=== PATIENT | male | born 1970 | race Two or more races ===

== ENCOUNTER 2024-11-06 22:14 | Inpatient (IN) | payer MEDICARE, OTHER ==
[~2024-11-06] VITALS: Ht 190.5 cm; Wt 150.4 kg
[2024-11-06] MEDS ORDERED: VANCOMYCIN 1 GM /D5W 250 ML PB IV ONE (23:03)
[2024-11-06] MEDS: VANCOMYCIN 1 GM in IV D5W 250 ML IV ONE (23:05)
[2024-11-06 23:11] LABS: PLATELET COUNT (AUTO) 406 K/uL (150-450); RED BLOOD CELL COUNT(AUTO) 4.94 MIL/uL (4.5-6.0); RED CELL DISTRIBUTION WIDTH 16.6 % (11.5-15.0); WHITE BLOOD COUNT (AUTO) 13.5 K/uL (4.3-11.0)
[2024-11-06 23:30] LABS: INR 1.02 (0.91-1.10)
[2024-11-06 23:32] LABS: CALCIUM, SERUM 9.3 mg/dL (8.5-10.1); CREATININE 1.1 mg/dL (0.6-1.3); SODIUM SERUM 130.0 mmol/L (136-145); UREA NITROGEN, BLOOD 8.0 mg/dL (7-18)
[2024-11-06 23:42] LABS: LACTIC ACID 1.8 mmol/L (0.4-2.0)
[2024-11-07] MEDS ORDERED: Z GUARD REMEDY 4 OZ OINT TP PRN
[2024-11-07] MEDS: CEFEPIME 2 GM in IV D5W 100 ML IV SCH
[2024-11-07] MEDS: IV NS 0.9% 1,000 ML IV SCH
[2024-11-07] MEDS ORDERED: DOSING PER PHARMACY-VANCOMYCIN IV XX PRN
[2024-11-07] MEDS ORDERED: MAGNESIUM HYDROXIDE 30 ML UDC PO PRN
[2024-11-07] MEDS ORDERED: CEFEPIME 1 GM VIAL ONE (00:57)
[2024-11-07] MEDS ORDERED: DEXTROSE 50%-WATER 50 ML DISP.SYRIN IV PRN (02:30)
[2024-11-07] MEDS ORDERED: POLYETHYLENE GLYCOL 3350 17 GM POWD.PACK PO PRN (02:30)
[2024-11-07] MEDS ORDERED: FLUTICASONE PROPIONATE 16 GM BOTTLE NS PRN (02:30)
[2024-11-07 04:23] VITALS: BP 137/97; TEMP 98.1; O2SAT 96
[2024-11-07 04:45] VITALS: BP 137/97; TEMP 98.1; O2SAT 96
[2024-11-07] MEDS: ENOXAPARIN SODIUM 40 MG/0.4 ML DISP.SYRIN SQ SCH (05:08)
[2024-11-07] MEDS: INSULIN REGULAR, HUMAN 100 UNIT/ML 3 ML VIAL SQ PRN (06:48)
[2024-11-07 06:49] LABS: PLATELET COUNT (AUTO) 405 K/uL (150-450); RED BLOOD CELL COUNT(AUTO) 4.92 MIL/uL (4.5-6.0); RED CELL DISTRIBUTION WIDTH 16.5 % (11.5-15.0); WHITE BLOOD COUNT (AUTO) 11.4 K/uL (4.3-11.0)
[2024-11-07] MEDS: BLOOD SUGAR DIAGNOSTIC 1 EACH STRIP IN SCH (06:49)
[2024-11-07 07:09] LABS: CALCIUM, SERUM 8.9 mg/dL (8.5-10.1); CREATININE 1.0 mg/dL (0.6-1.3); PHOSPHORUS 2.8 mg/dL (2.5-4.9); SODIUM SERUM 129.0 mmol/L (136-145); UREA NITROGEN, BLOOD 8.0 mg/dL (7-18)
[2024-11-07] MEDS: PANTOPRAZOLE 40 MG TABLET.DR PO SCH (07:43)
[2024-11-07 08:00] VITALS: BP 128/87; TEMP 98.1; O2SAT 97
[2024-11-07] MEDS: FINASTERIDE (5 MG) 5 MG TABLET PO SCH (08:35)
[2024-11-07] MEDS: CITALOPRAM HYDROBROMIDE 20 MG TABLET PO SCH (08:35)
[2024-11-07] MEDS: DOCUSATE SODIUM LIQ 100 MG/10 ML UDC PO SCH (08:35)
[2024-11-07 08:47] LABS: IRON, SERUM 34 ug/dl (50-175)
[2024-11-07] MEDS: VANCOMYCIN HCL 1.25 GM in IV D5W 250 ML IV SCH (09:21)
[2024-11-07] MEDS ORDERED: METF-442 PO (09:25)
[2024-11-07] MEDS ORDERED: ATOR20TA PO (09:25)
[2024-11-07] MEDS ORDERED: LEVO200T8 PO (09:25)
[2024-11-07] MEDS ORDERED: SODI100037 PO (09:25)
[2024-11-07] MEDS ORDERED: DIPH25TA25 PO (09:25)
[2024-11-07] MEDS ORDERED: DEXT38GE12 PO (09:25)
[2024-11-07] MEDS ORDERED: ALBU18HF2 IH (09:25)
[2024-11-07] MEDS ORDERED: FINA5TAB11 PO (09:25)
[2024-11-07] MEDS ORDERED: PANT40TA2 PO (09:25)
[2024-11-07] MEDS ORDERED: QUET400T PO (09:25)
[2024-11-07] MEDS ORDERED: ACET-868 PO ×2 (09:25)
[2024-11-07] MEDS ORDERED: INSU100I14 SQ (09:25)
[2024-11-07] MEDS ORDERED: METO25TA6 PO (09:25)
[2024-11-07] MEDS ORDERED: SENN8.6T19 PO (09:25)
[2024-11-07] MEDS ORDERED: TAMS-12 PO (09:25)
[2024-11-07] MEDS ORDERED: CARI6CAP PO (09:25)
[2024-11-07] MEDS ORDERED: DOCU-141 PO (09:25)
[2024-11-07] MEDS ORDERED: MAGN400O6 PO (09:25)
[2024-11-07] MEDS ORDERED: ONDA4TAB5 PO (09:25)
[2024-11-07] MEDS ORDERED: GLUC1KIT SQ (09:25)
[2024-11-07] MEDS ORDERED: CLON1TAB12 PO (09:25)
[2024-11-07] MEDS ORDERED: METH-649 PO (09:25)
[2024-11-07] MEDS ORDERED: INSU100I30 SQ (09:25)
[2024-11-07] MEDS ORDERED: BUSP10TA35 PO (09:25)
[2024-11-07] MEDS ORDERED: FLUV100T3 PO (09:25)
[2024-11-07] MEDS ORDERED: BISA10SU11 RC (09:25)
[2024-11-07] MEDS ORDERED: CLOT15CR5 TP (09:25)
[2024-11-07] MEDS ORDERED: IBUP-1953 PO (09:25)
[2024-11-07] MEDS ORDERED: POLY17PO4 PO (09:25)
[2024-11-07] MEDS ORDERED: POLY119P3 PO (09:25)
[2024-11-07] MEDS ORDERED: FLUT16SP16 BNOSTRILS (09:25)
[2024-11-07] MEDS ORDERED: CITA40TA11 PO (09:25)
[2024-11-07] MEDS ORDERED: DIFL15OI3 TP (09:25)
[2024-11-07] MEDS ORDERED: LEVO750T46 PO (09:25)
[2024-11-07] MEDS ORDERED: HYDR50TA61 PO (09:25)
[2024-11-07 16:00] VITALS: BP 130/86; TEMP 98.1; O2SAT 98
[2024-11-07] MEDS: GUAIFENESIN 300 MG/15 ML UDC PO PRN (16:45)
[2024-11-07 20:00] VITALS: BP 130/94; TEMP 98.2; O2SAT 96
[2024-11-07] MEDS: ATORVASTATIN 10 MG TABLET PO SCH (21:19)
[2024-11-07] MEDS: ACETAMINOPHEN 325 MG TABLET PO PRN (21:43)
[2024-11-08 06:16] LABS: PLATELET COUNT (AUTO) 374 K/uL (150-450); RED BLOOD CELL COUNT(AUTO) 4.78 MIL/uL (4.5-6.0); RED CELL DISTRIBUTION WIDTH 16.5 % (11.5-15.0); WHITE BLOOD COUNT (AUTO) 9.1 K/uL (4.3-11.0)
[2024-11-08 06:31] LABS: CALCIUM, SERUM 9.2 mg/dL (8.5-10.1); CREATININE 0.9 mg/dL (0.6-1.3); SODIUM SERUM 129.0 mmol/L (136-145); UREA NITROGEN, BLOOD 6.0 mg/dL (7-18)
[2024-11-08 08:00] VITALS: BP 133/75; TEMP 97.5; O2SAT 96
[2024-11-08] MEDS: VANCOMYCIN 750 MG in IV D5W 250 ML IV SCH ×2 (16:50→17:57)
[2024-11-08 20:00] VITALS: BP 146/98; TEMP 98.2; O2SAT 93
[2024-11-08] MEDS: INSULIN GLARGINE, 100 UNIT/ML CARTRIDGE SQ SCH (21:52)
[2024-11-08] MEDS: ONDANSETRON HCL/PF 4 MG/2 ML VIAL IVP PRN (21:56)
[2024-11-08] MEDS: IBUPROFEN 600 MG TABLET PO PRN (23:02)
[2024-11-09 06:26] LABS: PLATELET COUNT (AUTO) 413 K/uL (150-450); RED BLOOD CELL COUNT(AUTO) 4.68 MIL/uL (4.5-6.0); RED CELL DISTRIBUTION WIDTH 16.2 % (11.5-15.0); WHITE BLOOD COUNT (AUTO) 10.2 K/uL (4.3-11.0)
[2024-11-09 06:31] LABS: CALCIUM, SERUM 9.0 mg/dL (8.5-10.1); CREATININE 0.9 mg/dL (0.6-1.3); SODIUM SERUM 129.0 mmol/L (136-145); UREA NITROGEN, BLOOD 7.0 mg/dL (7-18)
[2024-11-09 07:36] LABS: BAND % (MANUAL) 1 % (0.0-5.0); EOSINOPHILS % (MANUAL) 8 % (0-4); LYMPHOCYTES % (MANUAL) 17 % (16-48); MONOCYTES % (MANUAL) 4 % (0-11.0); NEUTROPHILS % (MANUAL) 70 (42-76); PLATELET ESTIMATE ADEQUATE
[2024-11-09 08:00] VITALS: BP 145/100; TEMP 97.5; O2SAT 96
[2024-11-09] MEDS: NEOMY SULF/BACITRAC ZN/POLY 15 GM TUBE TP SCH (08:44)
[2024-11-09] MEDS: CEFEPIME 2 GM in IV D5W 100 ML IV SCH (10:44)
[2024-11-09 16:00] VITALS: BP 132/97; TEMP 97.9; O2SAT 98
[2024-11-09] MEDS: CLOTRIMAZOLE 1% 15 GM TUBE TP SCH (18:51)
[2024-11-09 20:00] VITALS: BP_SYST 153; BP_SYST 154; BP_DIAS 102; BP_DIAS 103; TEMP 97.9; O2SAT 95
[2024-11-10 05:45] LABS: PLATELET COUNT (AUTO) 398 K/uL (150-450); RED BLOOD CELL COUNT(AUTO) 5.06 MIL/uL (4.5-6.0); RED CELL DISTRIBUTION WIDTH 15.8 % (11.5-15.0); WHITE BLOOD COUNT (AUTO) 10.2 K/uL (4.3-11.0)
[2024-11-10 05:53] LABS: CALCIUM, SERUM 8.6 mg/dL (8.5-10.1); CREATININE 0.8 mg/dL (0.6-1.3); SODIUM SERUM 129.0 mmol/L (136-145); UREA NITROGEN, BLOOD 6.0 mg/dL (7-18)
[2024-11-10 08:00] VITALS: BP 156/99; TEMP 98.1; O2SAT 98
[2024-11-10] MEDS: MAG HYDROX/AL HYDROX/SIMETH 30 ML UDC PO PRN (08:22)
[2024-11-10] MEDS: VANCOMYCIN HCL 1.25 GM in IV D5W 250 ML IV SCH (12:16)
[2024-11-10] MEDS ORDERED: GADOTERATE MEGLUMINE 10 MMOL/20 ML VIAL IV ONE (14:38)
[2024-11-10 16:00] VITALS: BP 130/103; TEMP 98.2; O2SAT 94
[2024-11-10 20:00] VITALS: BP 120/88; TEMP 97.9; O2SAT 96
[2024-11-11 06:36] LABS: PLATELET COUNT (AUTO) 440 K/uL (150-450); RED BLOOD CELL COUNT(AUTO) 4.98 MIL/uL (4.5-6.0); RED CELL DISTRIBUTION WIDTH 16.5 % (11.5-15.0); WHITE BLOOD COUNT (AUTO) 12.1 K/uL (4.3-11.0)
[2024-11-11 06:48] LABS: CALCIUM, SERUM 8.6 mg/dL (8.5-10.1); CREATININE 0.8 mg/dL (0.6-1.3); SODIUM SERUM 127.0 mmol/L (136-145); UREA NITROGEN, BLOOD 6.0 mg/dL (7-18)
[2024-11-11 08:00] VITALS: BP 156/101; TEMP 98.2; O2SAT 96
[2024-11-11] MEDS: CEFTRIAXONE 2 G in IV D5W 100 ML IV SCH (11:40)
[2024-11-11] MEDS: ALPRAZOLAM 1 MG TABLET PO PRN (14:26)
[2024-11-11] MEDS ORDERED: GADOTERATE MEGLUMINE 10 MMOL/20 ML VIAL IV ONE (19:08)
[2024-11-11 20:00] VITALS: BP 143/96; TEMP 98.1; O2SAT 96
[2024-11-11] MEDS: IV NS 0.9% 1,000 ML IV PRN (21:24)
[2024-11-12 06:31] LABS: CALCIUM, SERUM 9.2 mg/dL (8.5-10.1); CREATININE 0.8 mg/dL (0.6-1.3); SODIUM SERUM 128.0 mmol/L (136-145); UREA NITROGEN, BLOOD 6.0 mg/dL (7-18)
[2024-11-12 08:00] VITALS: BP 141/102; TEMP 97.7; O2SAT 95
[2024-11-12] MEDS: SODIUM CHLORIDE 1000 MG TABLET PO SCH (08:11)
[2024-11-12 16:52] VITALS: BP 141/115; TEMP 97.8; O2SAT 93
[2024-11-12] MEDS ORDERED: DOXYCYCLINE HYCLATE (100 MG) 100 MG TABLET PO SCH (17:00)
[2024-11-12] MEDS ORDERED: AMOX/CLAVULANATE 875 MG TABLET PO SCH (17:00)
== END 2024-11-12 17:10 | DRG 637 ==
LOC: ER 22:19 → MED 11-07 04:01
PROVIDERS: ADMIT Registered Nurse Psychiatric/Mental Health; ATTEND Nurse Practitioner Acute Care
DX: E11.628 Type 2 diabetes mellitus with other skin complications (principal); J15.9 Unspecified bacterial pneumonia; E87.1 Hypo-osmolality and hyponatremia; L03.115 Cellulitis of right lower limb; L97.319 Non-pressure chronic ulcer of right ankle with unspecified severity; L97.312 Non-pressure chronic ulcer of right ankle with fat layer exposed; Z68.41 Body mass index [BMI] 40.0-44.9, adult; E11.52 Type 2 diabetes mellitus with diabetic peripheral angiopathy with gangrene; I96 Gangrene, not elsewhere classified; L03.031 Cellulitis of right toe; E11.65 Type 2 diabetes mellitus with hyperglycemia; E11.621 Type 2 diabetes mellitus with foot ulcer; I10 Essential (primary) hypertension; E78.5 Hyperlipidemia, unspecified; J44.9 Chronic obstructive pulmonary disease, unspecified; F25.9 Schizoaffective disorder, unspecified; F41.9 Anxiety disorder, unspecified; F32.A Depression, unspecified; E11.40 Type 2 diabetes mellitus with diabetic neuropathy, unspecified; B34.9 Viral infection, unspecified; D50.9 Iron deficiency anemia, unspecified; E66.01 Morbid (severe) obesity due to excess calories; N40.0 Benign prostatic hyperplasia without lower urinary tract symptoms; K46.9 Unspecified abdominal hernia without obstruction or gangrene; Z98.890 Other specified postprocedural states; L30.4 Erythema intertrigo; E11.622 Type 2 diabetes mellitus with other skin ulcer; L97.512 Non-pressure chronic ulcer of other part of right foot with fat layer exposed; Q66.89 Other specified congenital deformities of feet; Z87.891 Personal history of nicotine dependence; S60.511A Abrasion of right hand, initial encounter; X58.XXXA Exposure to other specified factors, initial encounter; Y92.9 Unspecified place or not applicable; I83.013 Varicose veins of right lower extremity with ulcer of ankle; Z79.4 Long term (current) use of insulin; Z79.51 Long term (current) use of inhaled steroids; Z79.890 Hormone replacement therapy
CPT/HCPCS: 36415; 71045-TC; 73610-TC; 73620-TC; 73720-TC; 73723-TC; 80048-TC; 80202-TC; 82962-TC; 83540-TC; 83605-TC; 83735-TC; 83935-TC; 84100-TC; 84300-TC; 85025-TC; 85027-TC; 85730-TC; 87040-TC; 87081-TC; 93971-TC; 97110-TC; 97116-TC; 97530-TC; A4223; A9575; G0378; J0692; J0696; J1650; J1815; J2405; J3373; J3374; J7030; J7060